=== PATIENT | male | born 2000 | race African-American/Black ===

== ENCOUNTER 2019-01-26 08:54 | Day surgery (SDC) | payer OTHER ==
[~2019-01-26] VITALS: Ht 182.9 cm; Wt 82.0 kg
[~2019-01-26 08:54] MED LIST: BUPIVACAINE-EPI 0.25%-1:200000 MPF 30 ML VIAL. INJ ONE; HYDROmorphone 2 MG/ML VIAL IV PRN; IV RINGERS,LACTATED 1000ML 1,000 ML IV SCH; MORPHINE SULFATE 2 MG/ML VIAL. IV PRN; ONDANSETRON PF 4 MG/2 ML VIAL. IV PRN; PROCHLORPERAZINE 10 MG/2 ML VIAL. IV PRN; fentaNYL PF VIAL 100 MCG/2 ML VIAL IV PRN
[2019-01-26] MEDS ORDERED: ACETAMINOPHEN 500 MG TABLET PO ONE (09:30)
[2019-01-26] MEDS ORDERED: DEXAMETHASONE SOD PHOS 4 MG/ML VIAL ONE (09:55)
[2019-01-26] MEDS ORDERED: PROPOFOL 20 ML IV ONE (09:55)
[2019-01-26] MEDS ORDERED: LIDOCAINE 2% PF 5 ML VIAL. ONE (09:55)
[2019-01-26] MEDS ORDERED: ONDANSETRON PF 4 MG/2 ML VIAL. ONE (09:55)
[2019-01-26] MEDS ORDERED: SEVOFLURANE 31 TO 60 MINUTES. IH ONE (09:55)
[2019-01-26] MEDS ORDERED: ceFAZolin 2GM PREMIX 2 GM/50 ML BAG IV ONE (10:00)
[2019-01-26] MEDS ORDERED: KETOROLAC 30 MG/ML VIAL. ONE (11:19)
--- NOTE | 2019-01-26 12:37 | PDOC4 ---
Operative Note Operative Note Date: 01/26/2019 Preoperative diagnosis cervical lymphadenopathy Postoperative diagnosis same Procedure: Excisional biopsy of left neck mass Surgeon: Bassem Specimen: Left neck mass Dictation: Patient is a 18-year-old male is noticed some swelling in his neck bilaterally ultrasound was performed which showed diffuse cervical lymphadenopathy largest lymph node was on the left side measuring 2 x 3 cm. Procedure of excisional biopsy was explained to the patient has family in detail risks benefits were also discussed including bleeding infection alternatives to this procedure also discussed with patient and family seem to understand and gave both verbal and written consent had the procedure performed. Patient was taken to the operating room placed in the supine position general anesthesia was initiated once patient was sleep and intubated his neck was prepped and draped usual sterile fashion using ChloraPrep and area over the mass was injected with quarter percent Marcaine with epinephrine incision was 15 blade scalpel this carried down through subcutaneous anus tissues are cauterized hemostasis the mass was dissected of its adherent tissues using blunt and sharp dissection with Metzenbaum scissors. The mass was removed was about 3 x 3 cm and sent to pathology as a fresh specimen. Wound was then closed in 2 layers a deep layer r unning 3-0 Vicryl and the skin was approximate for septic and a Monocryl Mastisol Steri-Strips and island dressing were applied. Patient was awakened and extubated in the operating room taken to recovery in stable condition all sponge instrument needle counts listed as correct estimated blood loss 5 mL. SOPHIE GALLEGO MD Jan 26, 2019 12:37
--- NOTE | 2019-01-26 12:38 | DISCH ---
DISCHARGE INSTRUCTIONS Condition on Discharge Condition on Discharge: Stable Activity After Discharge Activity Instructions for Disc: Avoid exertion Diet after Discharge Diet after Discharge: Regular Wound Incision Care Other wound/incision instructi: May shower in 24 hours Contacting the after DC Call your doctor for: If your condition worsens Follow-Up Follow up with: Dr. Gallego in 2 weeks SOPHIE GALLEGO MD Jan 26, 2019 12:38
[2019-01-26] MEDS ORDERED: HYDR-3164 PO (13:15)
[2019-01-26 13:30] VITALS: BP 140/64
[2019-01-26] MEDS ORDERED: HYDROcodone/APAP 5/325MG 1 TAB TABLET PO PRN (13:30)
== END 2019-01-26 13:45 | disposition home or self-care (01) ==
LOC: SURG 08:54
PROVIDERS: ATTEND Surgery
DX: R59.1 Generalized enlarged lymph nodes (principal); F32.9 Major depressive disorder, single episode, unspecified
CPT/HCPCS: 38500; A7015; J0696; J1100; J1885; J2001; J2405; J2704; J7120; 88184; 88185